=== PATIENT | male | born 2000 | race Caucasian/White ===

== ENCOUNTER 2021-09-03 15:38 | Emergency (ER) | payer SELFPAY ==
[2021-09-03 15:45] VITALS: BP 102/62; PULSE 75; TEMP 97.8; BMI 21.9
== END 2021-09-03 17:38 | disposition home or self-care (01) ==
LOC: JERFT 15:38
DX: S93.402A Sprain of unspecified ligament of left ankle, initial encounter (principal); W19.XXXA Unspecified fall, initial encounter; Y92.9 Unspecified place or not applicable
CPT/HCPCS: 73590-TC-LT-FY; 73610-TC-LT-FY; 73630-TC-LT; 99284-25